=== PATIENT | male | born 1990 | race Caucasian/White ===

== ENCOUNTER 2018-08-23 09:45 | Inpatient (IN) | payer OTHER ==
[2018-08-23] MEDS ORDERED: NS 0.9% 1000 ML** 1,000 ML IV ONE (09:53)
--- NOTE | 2018-08-23 09:54 | ED ---
Substance Abuse/Use - HPI Summary HPI Summary: 27 year old M brought in by ambulance to [facility] with a chief complaint of overdose on NyQuil since 01:00 today. The patient rates the pain 0/10 in severity. Symptoms aggravated by nothing. Symptoms alleviated by nothing. He reports suicidal ideation. Patient states that he took between 5000 mg to 7000 mg to harm himself. Last week, patient tried to harm himself with a knife. Patient states that he has difficulty keeping a train of thought. He reports shakiness, tingliness, numbness. Patient states he woke up next to his vomit. Patient admits to drinking 2 beers, 1 flask of vodka, 1/3 Chinese whiskey last night before taking NyQuil. Per EMS, patient was tachycardic en route. His BP was 170/90 per EMS. - History Of Current Complaint Stated Complaint: OVERDOSE ON BENADRYL PER EMS Hx Obtained From: Patient, EMS Ingestion History: Type/Name Of Drug - NyQuil, Amount Ingested - between 5000 mg and 7000 mg, Approximate Time Of Ingestion - 01:00 today Overdose Characteristics: Oral Severity Currently: None Aggravating Factor(s): Nothing Alleviating Factor(s): Nothing Associated Signs And Symptoms: Other: - suicidal ideation, difficulty keeping a train of thought, shakiness, tingliness, numbness, vomiting - Allergies/Home Medications Allergies/Adverse Reactions: Allergies Allergy/AdvReac Type Severity Reaction Status Date / Time No Known Allergies Allergy Verified 08/23/18 10:15 Home Medications: Home Medications NK [No Home Medications Reported] 08/23/18 [History Confirmed 08/23/18] PMH/Surg Hx/FS Hx/Imm Hx Previously Healthy: No Endocrine/Hematology History: Denies: Hx Diabetes Respiratory History: Denies: Hx Asthma - Surgical History Surgery Procedure, Year, and Place: hernia. meniscus - Family History Known Family History: Negative: Blood Disorder - Social History Alcohol Use: Weekly Hx Substance Use: No Substance Use Type: Reports: None Hx Tobacco Use: No Smoking Status (MU): Never Smoked Tobacco Review of Systems Positive: Vomiting Neurological: Other - shakiness, tingliness, numbness Positive: Other - overdose on NyQuil, suicidal ideation, difficulty keeping a train of thought All Other Systems Reviewed And Are Negative: Yes Physical Exam - Summary Physical Exam Summary: VITAL SIGNS: Reviewed. GENERAL: Patient is a well-developed and nourished MALE who is lying comfortable in the stretcher. Patient is not in any acute respiratory distress. He seems jittery and nervous. He has some flight of ideas. HEAD AND FACE: No signs of trauma. No ecchymosis, hematomas or skull depressions. No sinus tenderness. EYES: PERRLA, EOMI x 2, No injected conjunctiva, no nystagmus. EARS: Hearing grossly intact. Ear canals and tympanic membranes are within normal limits. MOUTH: Oropharynx within normal limits. NECK: Supple, trachea is midline, no adenopathy, no JVD, no carotid bruit, no c- spine tenderness, neck with full ROM. CHEST: Symmetric, no tenderness at palpation LUNGS: Clear to auscultation bilaterally. No wheezing or crackles. CVS: Tachycardia and regular rhythm, S1 and S2 present, no murmurs or gallops appreciated. ABDOMEN: Soft, non-tender. No signs of distention. No rebound no guarding, and no masses palpated. Bowel sounds are normal. EXTREMITIES: FROM in all major joints, no edema, no cyanosis or clubbing. NEURO: Alert and oriented x 3. No acute neurological deficits. Speech is normal and follows commands. SKIN: Dry and warm. Triage Information Reviewed: Yes Vital Signs Reviewed: Yes Diagnostics - Laboratory Result Diagrams: 08/23/18 09:59 08/23/18 10:00 Lab Statement: Any lab studies that have been ordered have been reviewed, and results considered in the medical decision making process. - EKG 0949 Cardiac Rate: Tachycardia - 135 BPM EKG Rhythm: Sinus Rhythm Summary of EKG Findings: Sinus rhythm [address] elevations Re-Evaluation - Re-Evaluation First Eval Re-Evaluation Time: 15:14 Comment: patient is medically cleared for mental health evaluation Course/Dx - Course Assessment/Plan: 27 year old M brought in by ambulance to [facility] with a chief complaint of overdose on NyQuil since 01:00 today. The patient rates the pain 0/ 10 in severity. Symptoms aggravated by nothing. Symptoms alleviated by nothing. He reports suicidal ideation. Patient states that he took between 5000 mg to 7000 mg to harm himself. Last week, the patient tried to harm himself with a knife. Patient states that he has difficulty keeping a train of thought. He reports shakiness, tingliness, numbness. Patient states he woke up next to his vomit. Patient admits to drinking 2 beers, 1 flask of vodka, 1/3 Chinese whiskey last night before taking NyQuil. Per EMS, patient was tachycardic en route. His BP was 170/90 per EMS. Blood test results without any significant abnormality except for glucose of 128, lactic acid 3.2. Repeat is 2.7. After 6 hours we discussed again with the poison control and since nothing has changed, the patient is alert and oriented 3, he will be medically clear. The patient is awaiting for mental health evaluation. Dr. Pro from psychiatry reviewed the patient and he will be admitted the patient to his services for further workup and management. - Diagnoses Provider Diagnoses: Depression Discharge - Sign-Out/Discharge Documenting (check all that apply): Patient Departure - Admit Patient Received Moderate/Deep Sedation with Procedure: No - Discharge Plan Condition: Stable [place] [place] Disposition and Condition Condition: STABLE [place]position[place] [facility] [place] Attestation Statements Document Initiated by Scribe: Yes Documenting Scribe: Yaa Magana Provider For Whom Scribe is Documenting (Include Credential): Jorje Rice MD Scribe Attestation: I, Yaa Magana, scribed for Jorje Rice MD on 08/24/18 at 2101. Scribe Documentation Reviewed: Yes Provider Attestation: The documentation as recorded by the scribeYaa accurately reflects the service I personally performed and the decisions made by me, Jorje Rice MD Status of Scribe Document: Viewed
[2018-08-23 10:08] LABS: ABS Lymphocytes 1.2 10^3/ul (1.0-4.8); ABS Monocytes 0.4 10^3/ul (0-0.8); ABS Neutrophils 4.6 10^3/ul (1.5-7.7); Hematocrit 42 % (42-52); Hemoglobin 14.4 g/dL (14.0-18.0); Lymphocyte % 19.1 %; Mean Corpuscular HGB Conc 34 g/dL (31-36); Mean Corpuscular Hemoglobin 29 pg (27-31); Mean Corpuscular Volume 85 fL (80-94); Mean Platelet Volume 8.9 fL (7.4-10.4); Nucleated Red Blood Cells % 0.1; Platelet Count 247 10^3/uL (150-450); Red Blood Count 4.91 10^6 /uL (4.18-5.48); Red Cell Distribution Width 14 % (10-15); White Blood Count 6.2 10^3/uL (3.5-10.8)
[2018-08-23] MEDS ORDERED: LORazepam INJ* 2 MG/ML 1 ML VIAL IV PUSH ONE (10:11)
[2018-08-23] MEDS ORDERED: Lorazepam PYXIS KEY PRN (10:11)
[2018-08-23] MEDS ORDERED: Lorazepam PYXIS KEY ONE (10:21)
[2018-08-23 10:26] LABS: ALT 17 U/L (7-52); AST 24 U/L (13-39); Albumin 4.7 g/dL (3.2-5.2); Albumin/Globulin Ratio 1.8 (1-3); Alkaline Phosphatase 61 U/L (34-104); Anion Gap 10 mmol/L (2-11); BUN/Creatinine Ratio 8.5 (8-20); Blood Urea Nitrogen 9 mg/dL (6-24); CO2 Carbon Dioxide 25 mmol/L (22-32); Calcium 9.9 mg/dL (8.6-10.3); Chloride 107 mmol/L (101-111); Creatine Kinase 189 U/L (10-223); EGFR African American 101.4 (>60); EGFR Non-African American 83.8 (>60); Globulin 2.6 g/dL (2-4); Glucose 128 mg/dL (70-100); Potassium 3.6 mmol/L (3.5-5.0); Sodium 142 mmol/L (135-145); Total Protein 7.3 g/dL (6.4-8.9)
[2018-08-23 10:55] LABS: Acetaminophen < 15 mcg/mL; Alcohol 46 mg/dL (<10); Salicylate < 2.50 mg/dL (<30)
[2018-08-23 11:05] LABS: TSH (Thyroid Stimulating Horm) 2.99 mcIU/mL (0.34-5.60)
[2018-08-23 12:26] LABS: Urine Appearance Clear; Urine Bilirubin Negative (Negative); Urine Blood Negative (Negative); Urine Color Yellow; Urine Glucose Negative (Negative); Urine Ketones Negative (Negative); Urine Nitrite Negative (Negative); Urine Protein Negative (Negative); Urine Urobilinogen Negative (Negative)
[2018-08-23 12:42] LABS: Urine Benzodiazepine Screen None Detected (None Detect); Urine Opiates Screen None Detected (None Detect)
[2018-08-23] MEDS: Nicotine* 2MG (FRUIT FLAVOR) GUM PO PRN (20:00)
[2018-08-23] MEDS ORDERED: Al Hydrox/Mg Hydrox/Simet LIQ* 30 ML UDC PO PRN (20:42)
[2018-08-24] MEDS ORDERED: Vitamin THERAPEUTIC TAB ONE (05:32)
--- NOTE | 2018-08-24 09:50 | HP ---
H&P (Free Text) History and Physical: Justification for admission: Immediate Safety. CC " I took Nyquil" The patient was brought to [facility] by EMS. He reported last night drinking a half a liter of vodka and bottle of Nyquil. He went to urgent care after vomiting and was sent to the emergency department. He describes the incident as impulsive. 3 weeks ago he had a recent break up with someone he had been dating for 3 years. He reported disturbance of sleep and gets up 3 times a night. He denied access to firearms or stockpiles of medications. He denied recent changes in appetite. The patient denied homicidal ideation intent or plan. The patient denied auditory and/ or visual hallucinations. He mentioned that his mother is on her way to the hospital to visit him. 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 MDD He feels bad people about how he does things so that people can pity him. He feels hopeless at times. Denied unintentional weight loss and appetite. He reported disruption of sleep and notes that he gets up multiple times a night. Anxiety Denied having symptoms of anxiety such as having times where heart feels that it is beating out of chest , sweaty palms, or shallow breathing. Denied having uncomfortable or intrusive thoughts. He often worries about deadlines, and expectations of others. He cuts himself with a knife to for anxiety relief. The last time was a week ago on his left arm. Bipolar Denied symptoms of sowmya such as having many ideas at once. Denied increased talkativeness where no one can interrupt. He reported feeling irritable with mood fluctuations of highs and lows mood. He acts on impulses of trying to have sexual relations with friends of his ex girlfriend. He denied grandiose ideas. Psychosis Does not endorse hearing things that other people do not hear or seeing things other people do not see. Denied feeling that TV is making references. Denied feeling that people are spying , following , or reading their thoughts. Phobias: Patient denied having excessive fear of a particular thing or situation. Eating disorders: Patient denied having excessive eating habits or feelings of guilt after eating. Denied repeated episodes of self induced vomiting after eating. PTSD Denied flashbacks, nightmares and avoidance of a prior traumatic event. PAST PSYCHIATRIC HISTORY: Prior Diagnosis : unspecified mood disorder History of past Psychiatric Hospitalizations: No prior psychiatric admission. History of past suicide/homicide attempts : Denied past suicide attempts. Denied past homicidal incidents. Outpatient follow-up: None at this time 3 years ago he was in Therapy at [employer] Medications: Past trials of medications include Zyprexa, prozac, latuda, lithium not concurrently. Dosage unknown. He last took medications 3 years ago and noted that latuda had the best response of the medications he took. Guardianship: None. FAMILY HISTORY: - Suicide: Denied family history of suicide. - Mental illness: His father has a History of Depression treatment and response unknown - Substance abuse: Father has a extensive alcohol abuse history and has been sober for 9 years. SUBSTANCE ABUSE HISTORY: - EtOH: Drinks 4+ beers/ night starting 2 years ago. No legal issues, seizures, blackouts, DTs. - Tobacco: Quit smoking 2 years ago, currently uses vapor nicotine oil on a daily basis. - Cannabis: Denied using recently or in the past. - Heroin: Used in the form of smoking for 1 year and quit 2 years ago - Cocaine: Denied using recently or in the past. - Substance abuse treatment: Denied past substance abuse treatment. SOCIAL HISTORY: Born in [place] and raised by both parents. 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 He lives alone in [place] 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 He is single no children. No sexual or physical abuse. He enjoys art, and in the future wants to move to [place] to become a staff occupational therapist for a [employer] staff. - Legal history: Denied - service history: Denied PAST MEDICAL HISTORY: Denied heart disease, diabetes, cancer and/ or other medical conditions. - Allergies: Denied drug or other allergies. Physical Exam: Please see ED note Mental Status Exam on Admission APPEARANCE : 27 year old who appears stated age. Patient is not malodourous, and appears to have fair hygiene and grooming. BEHAVIOR: Cooperative , calm EYE CONTACT: Fair PSYCHOMOTOR ACTIVITY: No psychomotor agitation or retardation. MOVEMENTS: No abnormal movements observed. SPEECH : Normal rate, rhythm, volume and tone. MOOD : "Fine " AFFECT : Type is anxious, Range is restricted with shallow depth Mood Incongruent THOUGHT PROCESS: Formulated and organized in a logical, linear goal directed manner. No flight of ideas, neologism (made up words) , perseveration , tangential , loose associations , or circumstantiality. THOUGHT CONTENT: no delusions, obsessions, phobias or preoccupations. PERCEPTION: No current auditory or visual hallucinations. Doesnt appear to be responding to internal cues. No evidence of depersonalization , de-realization, or illusions SUICIDALITY Recent suicide attempt HOMICIDALITY Denied homicidal ideation, intent or plan. Insight/judgment: Poor insight and judgment ORIENTATION: Oriented to self, location, and time. Diagnosis on Admission: Unspecified mood disorder. Alcohol use disorder. Tobacco use disorder Assessment: 27 year old with history of unspecified mood disorder with no current treatment for 3 years came to the hospital following a suicide attempt and was admitted to the [facility] at [facility]. Plan #Admit to BSU, Q15 minute observation. Start regular diet. Encourage participation in activities on the milieu. #Patient evaluated in ED and was determined by the emergency room Physician to be medically fit for admission to the BSU. # Justification for Admission: For immediate safety per outlined in the [place] Mental Hygiene Code. # The patient requires psychiatric inpatient admission at this time to assure safety, receive treatment and work toward stabilization. # Labs ordered: CBC, CMP, UDS, TSH, HBA1c, TSH, Toxicology screen, Urine analysis, and lipid profile. # Obtain collateral information once release is signed. # Collaboration with Nuclear Medicine Tech Lyn Lovelace #Start Latuda 20mg daily Substance Abuse resources offered. Tobacco use disorder: nicotine supplement offered and put in place. #Goals before discharge include: To eliminate/ reduce suicidal ideation The risks, benefits, and alternative treatment options were discussed as well as of the risks of refusing treatment. After this discussion and an acknowledgement of this understanding was made. A risk/ benefit assessment of treatment was considered and discussed with the patient. When comparing the risks of treatment with the dangers of not receiving treatment, the benefits of treatment outweigh the treatment risks at this time. Risks of allergy, suicidal ideation, behavioral changes, dystonia, rashes, electrolyte imbalances, movement disorders, cardiac conduction changes, serotonin syndrome, metabolic risks and NMS were among some of the risks discussed. Sodium 142 mmol/L (135-145) 08/23/18 10:00 Potassium 3.6 mmol/L (3.5-5.0) 08/23/18 10:00 BUN 9 mg/dL (6-24) 08/23/18 10:00 Creatinine 1.06 mg/dL (0.67-1.17) 08/23/18 10:00 Calcium 9.9 mg/dL (8.6-10.3) 08/23/18 10:00 AST 24 U/L (13-39) 08/23/18 10:00 ALT 17 U/L (7-52) 08/23/18 10:00 Triglycerides 47 mg/dL 08/24/18 07:37 Cholesterol 138 mg/dL 08/24/18 07:37 LDL Cholesterol 36 mg/dL 08/24/18 07:37 Vital Signs Temp Pulse Resp BP Pulse Ox 98.2 F 77 16 140/82 100 08/24/18 08:00 08/24/18 08:00 08/24/18 11:19 08/24/18 08:00 08/23/18 19:19 Al Hydrox/Mg Hydrox/Simethicone (Maalox Plus*) 30 ml PO Q4H PRN PRN Reason: INDIGESTION Lurasidone HCl (Latuda) 20 mg PO 1700 GLEN Miscellaneous (Ativan Pyxis Kam) 1 ea N/A .ATIVAN IV KAM PRN PRN Reason: PYXIS KAM Multivitamins (Theragran Tab*) 1 tab PO DAILY GLEN Last Admin: 08/24/18 11:42 Dose: 1 tab Nicotine Polacrilex (Nicotine Gum*) 2 mg PO Q2H PRN PRN Reason: CRAVINGS Last Admin: 08/24/18 11:41 Dose: 2 mg
[2018-08-24] MEDS: Nicotine* 2MG (FRUIT FLAVOR) GUM PO PRN ×2 (11:41→17:01)
[2018-08-24] MEDS: Vitamin THERAPEUTIC TAB PO SCH (11:42)
[2018-08-24] MEDS: Lurasidone(*) 20 MG TAB PO SCH (17:01)
[2018-08-25] MEDS: Vitamin THERAPEUTIC TAB PO SCH (08:37)
[2018-08-25] MEDS: Nicotine* 2MG (FRUIT FLAVOR) GUM PO PRN (08:37)
[2018-08-25 08:43] VITALS: BP 159/95
--- NOTE | 2018-08-25 11:28 | PN ---
Subjective - Subjective Date of Service: 08/25/18 Service Type: 96473 Hosp care 15 min low complexity Subjective: patient reports dislike of sedation side effect with first dose of lurasidone. discussed likelihood of temporary effect and recommendations to take with at least 350cal for adequate absorption if he chooses to continue with medication. patient reports frustration with being hospitalized, minimizes events leading to admission and attributes overdose to being intoxicated, impulsive and attention-seeking. He reports poor sleep due to frequent safety checks. He denies SI and reports goal of completing master's degree within 6 months. Objective - General Observations Appearance: Neat Stature: Thin Posture: WNL Eye Contact: Intermittent Behavior/Activity: WNL - Interaction Observations Attitude Towards Examiner: Defensive Stated Mood: Dysphoric Affect: Restricted Speech Pattern/Tone: Clear, Appropriate, Normal Volume Thought Process: Coherent, Goal Directed Perception: WNL Thought Content: WNL Hallucination Type: Denies Delusion Type: Denies - Cognitive Function Orientation: A&O x 4 Level of Consciousness: Alert Cognition: WNL Estimated Intelligence: Normal Insight: Difficulty Acknowledging Presence of Psyciatric Problems Judgment Within Normal Limits: No Ability to Make Reasonable Decisions: Moderately Impaired - Medication Compliance Cooperative with Inpatient Medication Regimen: Yes - Group Participation Participates in Group Activities: Partial Assessment - Assessment Merits Inpatient Hospitalization: For Immediate Safety, For Stabilization Inpatient DSM-V Dx: F34.9 Clinical Impression: 27yo male with history of unspecified mood d/o and no prior psychiatric hospitalizations, admitted to [facility] following a suicide attempt by drinking half-liter of vodka and bottle of Nyquil after a recent break up. He merits hospitalization for immediate safety and stabilization. Plan - Plan Treatment Plan: Name: JERI COTTON Birthdate: 1990 [id number] continue acute intensive psychiatric treatment. may decrease to q30min obs and allow staff pass per RN discretion. continue current medications. family meeting tentative tomorrow, 08/26/18. Continued Medication Management: Continue Outpt Medication Medications: Current Medications Al Hydrox/Mg Hydrox/Simethicone (Maalox Plus*) 30 ml PO Q4H PRN PRN Reason: INDIGESTION Lurasidone HCl (Latuda) 20 mg PO 1700 GLEN Last Admin: 08/24/18 17:01 Dose: 20 mg Miscellaneous (Ativan Pyxis Kam) 1 ea N/A .ATIVAN IV KAM PRN PRN Reason: PYXIS KAM Multivitamins (Theragran Tab*) 1 tab PO DAILY GLEN Last Admin: 08/25/18 08:37 Dose: 1 tab Nicotine Polacrilex (Nicotine Gum*) 2 mg PO Q2H PRN PRN Reason: CRAVINGS Last Admin: 08/25/18 08:37 Dose: 2 mg - Discharge Plan Discharge Plan: Inpatient Hospitalization
[2018-08-25] MEDS: Lurasidone(*) 20 MG TAB PO SCH (17:02)
[2018-08-26] MEDS: Vitamin THERAPEUTIC TAB PO SCH (08:52)
--- NOTE | 2018-08-26 11:20 | DS ---
Subjective - Subjective Service Types: [address] [facility] Day Mgmt complex over 30 min Discharge Date: 08/26/18 Subjective: CC: " I am better" Patient looks forward to finishing school and moving to [facility]. The patient was seen and evaluated before discharge today. The patient reported having adequate appetite and sleep. The patient reports attending some groups. Per nursing no behavioral issues or overnight events reported. Patient reported tolerating medications without side effects. Justification for admission: Immediate Safety. CC " I took Nyquil" The patient was brought to [facility] by EMS. He reported last night drinking a half a liter of vodka and bottle of Nyquil. He went to urgent care after vomiting and was sent to the emergency department. He describes the incident as impulsive. 3 weeks ago he had a recent break up with someone he had been dating for 3 years. He reported disturbance of sleep and gets up 3 times a night. He denied access to firearms or stockpiles of medications. He denied recent changes in appetite. The patient denied homicidal ideation intent or plan. The patient denied auditory and/ or visual hallucinations. He mentioned that his mother is on her way to the hospital to visit him. 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 MDD He feels bad people about how he does things so that people can pity him. He feels hopeless at times. Denied unintentional weight loss and appetite. He reported disruption of sleep and notes that he gets up multiple times a night. Anxiety Denied having symptoms of anxiety such as having times where heart feels that it is beating out of chest , sweaty palms, or shallow breathing. Denied having uncomfortable or intrusive thoughts. He often worries about deadlines, and expectations of others. He cuts himself with a knife to for anxiety relief. The last time was a week ago on his left arm. Bipolar Denied symptoms of sowmya such as having many ideas at once. Denied increased talkativeness where no one can interrupt. He reported feeling irritable with mood fluctuations of highs and lows mood. He acts on impulses of trying to have sexual relations with friends of his ex girlfriend. He denied grandiose ideas. Psychosis Does not endorse hearing things that other people do not hear or seeing things other people do not see. Denied feeling that TV is making references. Denied feeling that people are spying , following , or reading their thoughts. Phobias: Patient denied having excessive fear of a particular thing or situation. Eating disorders: Patient denied having excessive eating habits or feelings of guilt after eating. Denied repeated episodes of self induced vomiting after eating. PTSD Denied flashbacks, nightmares and avoidance of a prior traumatic event. PAST PSYCHIATRIC HISTORY: Prior Diagnosis : unspecified mood disorder History of past Psychiatric Hospitalizations: No prior psychiatric admission. History of past suicide/homicide attempts : Denied past suicide attempts. Denied past homicidal incidents. Outpatient follow-up: None at this time 3 years ago he was in Therapy at [facility] Medications: Past trials of medications include Zyprexa, prozac, latuda, lithium not concurrently. Dosage unknown. He last took medications 3 years ago and noted that latuda had the best response of the medications he took. Guardianship: None. FAMILY HISTORY: - Suicide: Denied family history of suicide. - Mental illness: His father has a History of Depression treatment and response unknown - Substance abuse: Father has a extensive alcohol abuse history and has been sober for 9 years. SUBSTANCE ABUSE HISTORY: - EtOH: Drinks 4+ beers/ night starting 2 years ago. No legal issues, seizures, blackouts, DTs. - Tobacco: Quit smoking 2 years ago, currently uses vapor nicotine oil on a daily basis. - Cannabis: Denied using recently or in the past. - Heroin: Used in the form of smoking for 1 year and quit 2 years ago - Cocaine: Denied using recently or in the past. - Substance abuse treatment: Denied past substance abuse treatment. SOCIAL HISTORY: Born in [facility] and raised by both parents. 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 He lives alone in [place] [facility] [facility]. 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 He is single no children. No sexual or physical abuse. He enjoys art, and in the future wants to move to [facility] to become a staffing director for a [employer] staff. - Legal history: Denied - service history: Denied PAST MEDICAL HISTORY: Denied heart disease, diabetes, cancer and/ or other medical conditions. - Allergies: Denied drug or other allergies. Physical Exam: Please see ED note Mental Status Exam on Admission APPEARANCE : 27 year old who appears stated age. Patient is not malodourous, and appears to have fair hygiene and grooming. BEHAVIOR: Cooperative , calm EYE CONTACT: Fair PSYCHOMOTOR ACTIVITY: No psychomotor agitation or retardation. MOVEMENTS: No abnormal movements observed. SPEECH : Normal rate, rhythm, volume and tone. MOOD : "Fine " AFFECT : Type is anxious, Range is restricted with shallow depth Mood Incongruent THOUGHT PROCESS: Formulated and organized in a logical, linear goal directed manner. No flight of ideas, neologism (made up words) , perseveration , tangential , loose associations , or circumstantiality. THOUGHT CONTENT: no delusions, obsessions, phobias or preoccupations. PERCEPTION: No current auditory or visual hallucinations. Doesnt appear to be responding to internal cues. No evidence of depersonalization , de-realization, or illusions SUICIDALITY Recent suicide attempt HOMICIDALITY Denied homicidal ideation, intent or plan. Insight/judgment: Poor insight and judgment ORIENTATION: Oriented to self, location, and time. Diagnosis on Admission: Unspecified mood disorder. Alcohol use disorder. Tobacco use disorder Assessment: 27 year old with history of unspecified mood disorder with no current treatment for 3 years came to the hospital following a suicide attempt and was admitted to the BSU at [facility]. Diagnosis on Discharge:Bipolar 2 disorder in partial remission. Alcohol use disorder. Tobacco use disorder. Borderline personality disorder. Condition at the time of discharge: At the time of discharge patient showed improvement of sleep and appetite. The patient was not a danger to self or others. The patient denied suicidal ideation , intent or plan. The patient denied homicidal targets, ideation, intent or plan. This patient participated in psychosocial rehabilitation and gained some insight into problems. The patient gained insight into mental illness, triggers, and treatment. The patient took medication as prescribed. The patient denied side effects of medication and objective signs of side effects were not evident. Therapy Resources were offered to the patient. Patient was given a supply of prescriptions at the time of discharge. The patient plans to attend follow up care with the follow up arrangements that were discussed and put in place. Patient was asked to keep appointments as scheduled, take medication as prescribed, have routine follow up care with their primary care physician and refrain from any use of alcohol or drugs. Objective - General Observations Appearance: Neat Appears Stated Age: Yes Stature: WNL Posture: WNL Eye Contact: Average Behavior/Activity: WNL - Interaction Observations Attitude Towards Examiner: Cooperative Attitude Towards Parent/Guardian: Positive Interaction Stated Mood: Euthymic Affect: Full Speech Pattern/Tone: Clear Thought Process: Coherent Perception: WNL Thought Content: WNL Hallucination Type: None Delusion Type: None - Cognitive Function Orientation: A&O x 4 Level of Consciousness: Awake - Medication Compliance Cooperative with Inpatient Medication Regimen: Yes - Group Participation Participates in Group Activities: Partial Treatment Course & Assessment Clinical Course & Impression: Hospital course part A: 27 year old with history of unspecified mood disorder with no current treatment for 3 years came to the hospital following a suicide attempt and was admitted to the BSU at [facility]. Hospital course part B: Labs ordered included CBC, CMP, UDS, TSH, HBA1c, TSH, Toxicology screen, Urine analysis, and lipid profile. Labs were reviewed and did not require the need for further evaluation. Vital signs were monitored during the course of admission. MMPI was ordered and in the process of being interpreted EKG ordered for risk of QT prolongation of antipsychotic medication. EKG was reviewed and no abnormal findings were present The patient was admitted to the adult behavioral unit and placed on 15 minute check for safety. At a later time the patient was on Q30 minute observation and staff pass privileges. With those limits being extended , there were no occurrence of behavioral incidents. The patient did well on the unit and went to groups. Interacted with peers had adequate sleep and regular appetite. Tolerated medication changes without side effects. Group therapy and services were offered. The risks, benefits, and alternative treatment options were discussed as well as of the risks of refusing treatment. Treatment associated risks discussed. After this discussion made an acknowledgement of this understanding. Follow up care appointments were put in place for follow up care. The importance of monitoring for metabolic changes was discussed and acknowledgement of this understanding was made. Patient informed not to abruptly stop or start new medications before consulting with a medical professional. Improvements in patient from the time of admission include: Improved affect, sleep and decrease in anxiety. No longer suicidal and no longer having feelings of hopelessness. The patient expressed readiness for discharge home. The patient presents with a broader range of affect, and the absence of depressed mood, delusions, perceptual disturbances. The patient denied suicidal and or homicidal ideation intent or plan. Overall, the patient responded well to inpatient treatment as evidenced by their report of strengthening of coping mechanisms, reduced distress, and more positive outlook on circumstances. Of note there was an improvement of recognizing how emotional state can effect mood and behavior. Safety precautions were put in place which included involving the patient and their family to closely monitor for changes in mental state. In addition, implementing follow up care, screening for the need to remove/securing firearms , weapons and stockpile of medications. Patient/ family instructed to immediately call 911 should any safety concerns arise. AIMS was performed and insignificant for involuntary movement disorders. The patient was advised of the 24 hour / 7 days a week availability of the emergency room and to call 911 in the event of an emergency such as being suicidal and/ or homicidal. The patient was informed of the contact information for [facility] Behavioral Services Unit, Suicide Prevention and Crisis Services, National Suicide Prevention Lifeline, [facility], Alcoholics Anonymous, and [facility]. Medications started included latuda 20mg and increased to 40mg daily. He has a history of diabetes in his family and latuda has one of the lower metabolic influences to causing diabetes. He was advised to take with food for activation. He acknowledged how alcohol makes him impulsive and plans to cut down on drinking. He was offered substance abuse resources and declined. His mother picked him up before discharge. Nicotine replacement was provided and he declined cessation resources. Family meeting took place before discharge. His mother confirmed that the patient is at their baseline and is in agreement with the discharge plan. She was advised about the warning signs associated with decompensation and progression of mental illness. . The family plans to stay the weekend and confirmed no access to firearms. Patient was not assaultive or a behavioral problem during the course of admission. The patient showed improvement of hygiene and was able to carry out activities of daily living. Patient will be discharged to live at home. Follow up appointment at [facility]. Patient informed of follow up appointment times. See more details for follow up care in the discharge plan. Risk factors: , single, history of mental illness. Alcohol abuse. Recent changes in relationship status. Protective factors: Currently no suicidal ideation, intent or plan. No prior history of suicide attempt. Has strong support system. No history of service. Currently no feelings of hopelessness, not in an occupation of social isolation, doesnt have multiple medical conditions, no family history of suicide, doesnt have access to firearms. Doesnt have command hallucinations and or psychotic features at this time. No current substance abuse. Not an anniversary of a loss of a loved one. Currently future orientated. Patient engaged in treatment and compliant with medication. Merits Inpatient Hospitalization: No Clear for Discharge: Adequate Clinical Respons Inpatient DSM-V Dx: F34.9 Discharge Planning - Discharge Planning Discharge Plan: Outpatient Follow Up Outpatient Program: Counseling/Psych Services at [facility] Recommendations for Continuing Care: Medication Management Medications: Current Medications Al Hydrox/Mg Hydrox/Simethicone (Maalox Plus*) 30 ml PO Q4H PRN PRN Reason: INDIGESTION Lurasidone HCl (Latuda) 40 mg PO 1700 [facility] Miscellaneous (Ativan Pyxis Ramirez) 1 ea N/A .ATIVAN IV RAMIREZ PRN PRN Reason: PYXIS RAMIRZE Multivitamins (Theragran Tab*) 1 tab PO DAILY [facility] Last Admin: 08/26/18 08:52 Dose: Not Given Nicotine Polacrilex (Nicotine Gum*) 2 mg PO Q2H PRN PRN Reason: CRAVINGS Last Admin: 08/25/18 08:37 Dose: 2 mg Discharge Planning: Prescriptions provided for discharge [x] Yes [] No Follow up care details as per social work arrangements. Patient response to discharge plan: [x] eager for discharge [] agreeable with discharge plan [] ambivalent about discharge [] disagrees with discharge today
[2018-08-26] MEDS ORDERED: Lurasidone(*) 40 MG TAB PO SCH (17:00)
== END 2018-08-26 13:40 | disposition home or self-care (01) | DRG 885 ==
LOC: ED 09:45 → BSU 18:08
PROVIDERS: ADMIT Psychiatry & Neurology Psychiatry; ATTEND Psychiatry & Neurology Psychiatry
DX: F31.81 Bipolar II disorder (principal); R00.0 Tachycardia, unspecified; T50.992A Poisoning by other drugs, medicaments and biological substances, intentional self-harm, initial encounter; F10.10 Alcohol abuse, uncomplicated; Y90.9 Presence of alcohol in blood, level not specified; T51.8X2A Toxic effect of other alcohols, intentional self-harm, initial encounter; F60.3 Borderline personality disorder; Y92.009 Unspecified place in unspecified non-institutional (private) residence as the place of occurrence of the external cause; Z87.891 Personal history of nicotine dependence
CPT/HCPCS: 36415; 80053; 80061; 80307; 80320; 80329; 81003; 82550; 83036; 83605; 84443; 85025; 93005; 99222; 99231; 99238; 99285; A9270-GY; G0480; J2060